=== PATIENT | male | born 1965 | race Two or more races ===

== ENCOUNTER 2019-05-28 19:20 | Emergency (ER) | payer BC ==
[~2019-05-28] VITALS: Ht 167.6 cm; Wt 108.9 kg
[2019-05-28 19:40] VITALS: BP 152/90
[2019-05-28] MEDS ORDERED: KETOROLAC 60 MG/2 ML VIAL IM ONE (19:45)
--- NOTE | 2019-05-28 19:45 | NUR ---
Patient ambulated to bed 6 with family. RN evaluating patient at bedside.
--- NOTE | 2019-05-28 19:47 | NUR ---
Dr. Orta evaluating patient at bedside.
--- NOTE | 2019-05-28 19:48 | NUR ---
53/M PRESENTS TO ED WITH FAMILY/FRIEND, C/O L BORJA PAIN, X2 WEEKS S/P HITTING IT ON A TRAILER HITCH. NOTED WITH DRIED SCAB AND SURROUNDING REDNESS, +CMS. PT AWAKE AND ALERT, AMBULATORY, RR EVEN AND UNLABORED. DENIES MED HX OR RX.
--- NOTE | 2019-05-28 19:53 | NUR ---
psychology tech at bedside.
--- NOTE | 2019-05-28 21:04 | NUR ---
Dr. Orta evaluating patient at bedside.
[2019-05-28 21:25] VITALS: BP 134/93
== END 2019-05-28 21:25 | disposition home or self-care (01) ==
LOC: MED 19:20
DX: S80.12XA Contusion of left lower leg, initial encounter (principal); W22.8XXA Striking against or struck by other objects, initial encounter; Y93.89 Activity, other specified; Y92.89 Other specified places as the place of occurrence of the external cause; Y99.8 Other external cause status
CPT/HCPCS: 73590; 96372; 99283; J1885; Q0092